=== PATIENT | female | born 1970 | race African-American/Black ===

== ENCOUNTER 2018-08-10 14:43 | Observation (INO) ==
[2018-08-10 15:25] LABS: Basophils % 0.3 % (0.0-0.8); Eosinophils % 0.4 % (0.00-10.9); Hemoglobin 13.4 GM/DL (12.0-16.0); Immature Granulocytes % 0.4 %; Immature Granulocytes Absolute 0.03 #; Lymphocytes # 2.7 10*3/uL (1.4-4.0); Mean Corpuscular HGB Conc 31.2 GM/DL (32-36); Mean Platelet Volume 10.5 FL (9.6-12.0); Neutrophils % 51.9 % (38.7-73.9); Platelet Count 259 T/CUMM (130-400); Red Blood Count 4.94 MC/CUMM (3.8-5.5); Red Cell Distribution Width 14.6 % (9.3-17.3); White Blood Count 7.2 T/CUMM (4-12)
[2018-08-10 15:32] LABS: INR 0.9; PT Patient Result 9.6 SECS
[2018-08-10 15:43] LABS: Alanine Aminotransferase 430 U/L (13-56); Albumin 3.7 G/DL (3.4-5.0); Alkaline Phosphatase 407 U/L (45-117); Aspartate Amino Transferase 374 U/L (0-37); Blood Urea Nitrogen 10 MG/DL (7-18); Calcium 8.9 MG/DL (8.5-10.1); Glucose 99 MG/DL (74-106); Osmolality,Calculated 275.5 MOS/KG (273-304); Total Protein 7.8 G/DL (6.4-8.3); Troponin I < 0.015 NG/ML (0.00-0.045)
[2018-08-10] MEDS ORDERED: ONDANSETRON 4 MG/2 ML VIAL IV STA (16:10)
[2018-08-10] MEDS ORDERED: FAMOTIDINE 20 MG/2 ML VIAL IV STA (16:10)
[2018-08-10] MEDS ORDERED: METOCLOPRAMIDE 10 MG/2 ML VIAL IV STA (16:10)
[2018-08-10] MEDS ORDERED: SODIUM CHLORIDE 0.9% 500 ML IV STA (16:10)
[2018-08-10 18:03] LABS: Hepatitis B Core IgM Quant < 0.05 Index; Hepatitis B Surface Ag Quant 0.18 Index; Hepatitis B Surface Ag Result Negative (Negative); Hepatitis C Virus Ab Quant 0.07 Index; Hepatitis C Virus Ab Result Negative (Negative)
[2018-08-10] MEDS ORDERED: ACETAMINOPHEN 325 MG TABLET PO PRN (19:00)
[2018-08-10] MEDS ORDERED: LACTULOSE 20 GM/30 ML UDCUP PO PRN (19:00)
[2018-08-10] MEDS ORDERED: ONDANSETRON 4 MG/2 ML VIAL IV PRN (19:00)
[2018-08-10] MEDS ORDERED: DOCUSATE SODIUM 100 MG CAPSULE PO PRN (19:00)
[2018-08-10] MEDS ORDERED: FAMOTIDINE 20 MG/2 ML VIAL IV SCH (22:30)
[2018-08-10] MEDS: PANTOPRAZOLE 40 MG VIAL IV SCH (23:05)
[2018-08-10] MEDS: ENOXAPARIN 40 MG/0.4 ML SYRINGE SUBCUT SCH (23:06)
[2018-08-10] MEDS: LISINOPRIL 10 MG TABLET PO SCH (23:07)
[2018-08-10] MEDS: DEXTROSE 5% NACL 0.45% 1,000 ML IV SCH (23:12)
[2018-08-11 04:46] LABS: Basophils % 0.2 % (0.0-0.8); Eosinophils % 0.4 % (0.00-10.9); Hematocrit 36.1 VOL% (35.7-47.0); Hemoglobin 11.7 GM/DL (12.0-16.0); Immature Granulocytes % 0.4 %; Immature Granulocytes Absolute 0.02 #; Lymphocytes # 2.2 10*3/uL (1.4-4.0); Lymphocytes % 43.3 % (21.3-54.2); Mean Corpuscular HGB Conc 32.4 GM/DL (32-36); Mean Corpuscular Volume 86.2 FL (87-102); Mean Platelet Volume 10.8 FL (9.6-12.0); Monocytes % 7.7 % (1.7-12.7); Platelet Count 231 T/CUMM (130-400); Red Blood Count 4.19 MC/CUMM (3.8-5.5); Red Cell Distribution Width 14.5 % (9.3-17.3)
[2018-08-11 04:55] LABS: Basophils % 0.2 % (0.0-0.8); Eosinophils % 0.6 % (0.00-10.9); Hematocrit 36.2 VOL% (35.7-47.0); Hemoglobin 11.5 GM/DL (12.0-16.0); Immature Granulocytes % 0.4 %; Immature Granulocytes Absolute 0.02 #; Lymphocytes # 2.3 10*3/uL (1.4-4.0); Lymphocytes % 44.7 % (21.3-54.2); Mean Corpuscular HGB Conc 31.8 GM/DL (32-36); Mean Platelet Volume 10.6 FL (9.6-12.0); Monocytes % 6.9 % (1.7-12.7); Neutrophils % 47.2 % (38.7-73.9); Platelet Count 234 T/CUMM (130-400); Red Blood Count 4.21 MC/CUMM (3.8-5.5); Red Cell Distribution Width 14.4 % (9.3-17.3); White Blood Count 5.1 T/CUMM (4-12)
[2018-08-11 05:17] LABS: Folate 9.5 NG/ML (5.4-24.0); Vitamin B12 1506 PG/ML (211-911)
[2018-08-11 05:18] LABS: Calcium 8.6 MG/DL (8.5-10.1); Osmolality,Calculated 281.1 MOS/KG (273-304)
[2018-08-11 05:26] LABS: Albumin 3.2 G/DL (3.4-5.0); Bilirubin,Direct 0.49 MG/DL (0.0-0.20); Bilirubin,Indirect 0.5 MG/DL (0.0-1.0); Total Protein 6.6 G/DL (6.4-8.3)
[2018-08-11 05:39] LABS: Ferritin 138.1 ng/ml (8-252); Thyroid Stimulating Hormone 1.99 uIU/ml (0.358-3.74)
[2018-08-11 07:48] LABS: Total Protein (Chem) 6.7 G/DL (6.4-8.3)
[2018-08-11 08:25] LABS: Hemoglobin A1 (Alkaline) 97.3 % (96.5-98.5); Hemoglobin A2 (Alkaline) 2.7 % (1.5-3.5)
[2018-08-11] MEDS: LISINOPRIL 10 MG TABLET PO SCH (08:29)
[2018-08-11] MEDS: DEXTROSE 5% NACL 0.45% 1,000 ML IV SCH ×3 (08:29→18:41)
[2018-08-11 08:58] LABS: Albumin (SPE) 4.2 G/DL (3.2-5.3); Albumin (SPE) Rel % 62.2 %; Alpha 1 (SPE) 0.2 G/DL (0.1-0.4); Alpha 1 (SPE) Rel % 2.8 %; Alpha 2 (SPE) 0.7 G/DL (0.4-1.0); Alpha 2 (SPE) Rel % 11.1 %; Beta (SPE) 0.8 G/DL (0.5-1.1); Beta (SPE) Rel % 11.5 %; Gamma (SPE) 0.8 G/DL (0.7-1.7); Gamma (SPE) Rel % 12.4 %
[2018-08-11] MEDS: PANTOPRAZOLE 40 MG VIAL IV SCH (09:27)
[2018-08-11 09:55] LABS: Sedimentation Rate-Westergren 35 MM/HR (0-20)
[2018-08-11] MEDS: amLODIPine 10 MG TABLET PO SCH (13:03)
[2018-08-11] MEDS: CARVEDILOL 6.25 MG TABLET PO SCH ×2 (13:05→20:40)
[2018-08-11] MEDS: ENOXAPARIN 40 MG/0.4 ML SYRINGE SUBCUT SCH (20:39)
[2018-08-11] MEDS: PANTOPRAZOLE 40 MG TABLET PO SCH (20:40)
[2018-08-12] MEDS: DEXTROSE 5% NACL 0.45% 1,000 ML IV SCH ×3 (04:34→14:57)
[2018-08-12 05:57] LABS: Albumin 3.4 G/DL (3.4-5.0); Bilirubin,Direct 0.2 MG/DL (0.0-0.20); Bilirubin,Total 1.2 MG/DL (0.2-1.0); Total Protein 6.8 G/DL (6.4-8.3)
[2018-08-12] MEDS: CARVEDILOL 6.25 MG TABLET PO SCH (08:18)
[2018-08-12] MEDS: PANTOPRAZOLE 40 MG TABLET PO SCH (08:18)
[2018-08-12] MEDS: amLODIPine 10 MG TABLET PO SCH (08:19)
[2018-08-12] MEDS ORDERED: hydroCHLOROthiazide 25 MG TABLET PO SCH (09:00)
[2018-08-12] MEDS ORDERED: LORazepam 2 MG/1 ML VIAL IV ONE (09:45)
[2018-08-12 13:51] LABS: Smooth Muscle Antibody Negative (Negative)
[2018-08-12 13:59] VITALS: BP 150/93
[2018-08-12 14:56] LABS: Mitochondrial Antibody (M2) <0.1 U
[2018-08-13 15:01] LABS: Alpha-1-Antitrypsin, Serum 131 mg/dL (100 - 190)
[2018-08-13 22:31] LABS: IgA Serum (MAYO) 235 mg/dL (61 - 356)
[2018-08-19 12:57] LABS: Tissue Transglutaminase IgA Ab < 1.2 U/mL
== END 2018-08-12 15:16 | disposition home or self-care (01) ==
LOC: N.EDINP 14:43 → N.ED 14:43 → SUATTDRO 18:22 → N.5E 19:02
PROVIDERS: ADMIT Hospitalist; ATTEND Hospitalist